=== PATIENT | female | born 1995 | race African-American/Black ===

== ENCOUNTER 2017-08-18 05:54 | Inpatient (IN) ==
[2017-08-18] MEDS ORDERED: BUTORPHANOL 2 MG/ML VIAL IV PRN (06:10)
[2017-08-18] MEDS: LACTATED RINGERS 1,000 ML IV SCH ×2 (06:26→09:20)
[2017-08-18] MEDS ORDERED: AMPICILLIN 2,000 MG VIAL IM ONE (06:30)
[2017-08-18] MEDS ORDERED: OXYTOCIN/LR 20 UNIT/1,000 ML BAG IV SCH (06:30)
[2017-08-18] MEDS ORDERED: SODIUM CHLORIDE 0.9% 100 ML IV ONE (06:31)
[2017-08-18] MEDS ORDERED: AMPICILLIN INJ 2,000 MG in SODIUM CHLORIDE 0.9% 100 ML IV ONE (06:34)
[2017-08-18 07:19] LABS: Basophils % 0.1 % (0.0-0.8); Eosinophils # 0.1 10*3/uL (0.0-0.87); Eosinophils % 0.7 % (0.00-10.9); Hematocrit 30.6 VOL% (35.7-47.0); Hemoglobin 9.7 GM/DL (12.0-16.0); Immature Granulocytes % 1.5 %; Immature Granulocytes Absolute 0.12 #; Lymphocytes # 1.9 10*3/uL (1.4-4.0); Lymphocytes % 23.9 % (21.3-54.2); Mean Corpuscular HGB Conc 31.7 GM/DL (32-36); Mean Corpuscular Hemoglobin 26 PG (27-34); Mean Platelet Volume 10.1 FL (9.6-12.0); Monocytes # 0.7 10*3/uL (0.11-0.8); Monocytes % 8.5 % (1.7-12.7); Neutrophils # 5.3 10*3/uL (1.4-7.4); Neutrophils % 65.3 % (38.7-73.9); Platelet Count 243 T/CUMM (130-400); Red Blood Count 3.73 MC/CUMM (3.8-5.5); Red Cell Distribution Width 13.5 % (9.3-17.3); White Blood Count 8.1 T/CUMM (4-12)
[2017-08-18] MEDS: ONDANSETRON 4 MG/2 ML VIAL IV PRN (07:55)
[2017-08-18] MEDS ORDERED: diphenhydrAMINE 50 MG/1 ML VIAL IV PRN ×2 (09:00)
[2017-08-18] MEDS ORDERED: FAMOTIDINE 20 MG/2 ML VIAL IV ONE (09:00)
[2017-08-18] MEDS ORDERED: CITRIC ACID/SODIUM CITRATE 30 ML UDCUP PO ONE (09:00)
[2017-08-18] MEDS ORDERED: fentaNYL 2 MCG/ROPIV 0.2% EPID 150 ML EPIDURAL SCH (09:00)
[2017-08-18] MEDS ORDERED: ePHEDrine 50 MG/ML AMP IV PRN (09:00)
[2017-08-18] MEDS ORDERED: LACTATED RINGERS 1,000 ML IV ONE ×2 (10:05→10:08)
[2017-08-18] MEDS ORDERED: LACTATED RINGERS 500 ML IV ONE ×2 (10:05→10:08)
[2017-08-18] MEDS ORDERED: BUTALBITAL/ACETAMIN/CAFFEINE 50-325-40 MG TABLET PO ONE (10:08)
[2017-08-18] MEDS ORDERED: LACTATED RINGERS 1,000 ML IV SCH ×2 (10:30)
[2017-08-18] MEDS ORDERED: AMPICILLIN 1,000 MG VIAL IM SCH (10:30)
[2017-08-18] MEDS ORDERED: BUTALBITAL/ACETAMIN/CAFFEINE 50-325-40 MG TABLET PO SCH (10:30)
[2017-08-18] MEDS ORDERED: AMPICILLIN INJ 1,000 MG in SODIUM CHLORIDE 0.9% 100 ML IV SCH (12:00)
[2017-08-18] MEDS: BUTALBITAL/ACETAMIN/CAFFEINE 50-325-40 MG TABLET PO SCH ×3 (12:56→23:42)
[2017-08-18] MEDS: SUMAtriptan 6 MG/0.5 ML VIAL SUBCUT SCH (13:04)
[2017-08-18] MEDS ORDERED: BENZOCAINE 20%/MENTHOL 0.5% SPRAY 56 GM CAN TOP PRN (14:14)
[2017-08-18] MEDS ORDERED: OXYTOCIN/LR 20 UNIT/1,000 ML BAG IV ONE (14:14)
[2017-08-18] MEDS ORDERED: RHO(D) IMMUNE GLOBULIN 300 MCG SYRINGE IM ONE (14:14)
[2017-08-18] MEDS ORDERED: ACETAMINOPHEN 325 MG TABLET PO PRN (14:14)
[2017-08-18] MEDS ORDERED: oxyCODONE/ACETAMINOPHEN 5-325 MG TABLET PO PRN (14:14)
[2017-08-18] MEDS ORDERED: LANOLIN 50% CREAM 0.3 OZ TUBE TOP PRN (14:14)
[2017-08-18] MEDS ORDERED: DIPH/TET/ACEL PERT BOOSTER VACCINE 0.5 ML VIAL IM ONE (14:14)
[2017-08-18] MEDS ORDERED: HYDROCORTISONE 2.5% RECTAL CREAM 30 GM TUBE TOP PRN (14:14)
[2017-08-18] MEDS ORDERED: MEASLES/MUMPS/RUBELLA VACCINE 0.5 ML VIAL SUBCUT ONE (14:14)
[2017-08-18] MEDS ORDERED: WITCH HAZEL PADS 100/JAR TOP PRN (14:14)
[2017-08-18] MEDS ORDERED: BISACODYL 10 MG SUPP RECTAL PRN (14:14)
[2017-08-18] MEDS ORDERED: AMPICILLIN 2,000 MG VIAL IM SCH (14:30)
[2017-08-18] MEDS: FERROUS SULFATE 325 MG TABLET PO SCH ×2 (15:52→21:21)
[2017-08-18] MEDS: IBUPROFEN 800 MG TABLET PO PRN ×2 (15:52→23:43)
[2017-08-18] MEDS: AMPICILLIN INJ 2,000 MG in SODIUM CHLORIDE 0.9% 100 ML IV SCH ×2 (17:14→23:45)
[2017-08-18] MEDS ORDERED: AMPICILLIN 2,000 MG VIAL IV SCH (17:30)
[2017-08-18] MEDS: DOCUSATE SODIUM 100 MG CAPSULE PO SCH (21:22)
[2017-08-18] MEDS: oxyCODONE/ACETAMINOPHEN 5-325 MG TABLET PO PRN (21:22)
[2017-08-19] MEDS: ALBUTEROL 2.5 MG/3 ML NEB RESP TX SCH ×5 (00:21→15:15)
[2017-08-19] MEDS: ONDANSETRON 4 MG/2 ML VIAL IV PRN (00:56)
[2017-08-19] MEDS: SUMAtriptan 6 MG/0.5 ML VIAL SUBCUT SCH (01:06)
[2017-08-19 04:45] LABS: Basophils % 0.1 % (0.0-0.8); Eosinophils # 0.1 10*3/uL (0.0-0.87); Eosinophils % 0.5 % (0.00-10.9); Hematocrit 32.6 VOL% (35.7-47.0); Hemoglobin 10.2 GM/DL (12.0-16.0); Immature Granulocytes % 1.1 %; Immature Granulocytes Absolute 0.15 #; Lymphocytes # 2.4 10*3/uL (1.4-4.0); Mean Corpuscular HGB Conc 31.3 GM/DL (32-36); Mean Corpuscular Hemoglobin 26 PG (27-34); Mean Corpuscular Volume 83.2 FL (87-102); Mean Platelet Volume 10.8 FL (9.6-12.0); Monocytes # 1.2 10*3/uL (0.11-0.8); Monocytes % 8.8 % (1.7-12.7); Neutrophils # 9.7 10*3/uL (1.4-7.4); Neutrophils % 71.5 % (38.7-73.9); Platelet Count 257 T/CUMM (130-400); Red Blood Count 3.92 MC/CUMM (3.8-5.5); Red Cell Distribution Width 13.5 % (9.3-17.3); White Blood Count 13.6 T/CUMM (4-12)
[2017-08-19] MEDS: BUTALBITAL/ACETAMIN/CAFFEINE 50-325-40 MG TABLET PO SCH (06:07)
[2017-08-19] MEDS: AMPICILLIN INJ 2,000 MG in SODIUM CHLORIDE 0.9% 100 ML IV SCH ×2 (06:07→11:31)
[2017-08-19] MEDS ORDERED: BUTALBITAL/ACETAMIN/CAFFEINE 50-325-40 MG TABLET PO PRN (07:16)
[2017-08-19] MEDS: DOCUSATE SODIUM 100 MG CAPSULE PO SCH ×2 (08:42→21:44)
[2017-08-19] MEDS: FERROUS SULFATE 325 MG TABLET PO SCH ×3 (08:42→21:44)
[2017-08-19] MEDS: IBUPROFEN 800 MG TABLET PO PRN ×2 (09:38→17:53)
[2017-08-19] MEDS: CIPROFLOXACIN 500 MG TABLET PO SCH (21:44)
[2017-08-20] MEDS: ALBUTEROL 2.5 MG/3 ML NEB RESP TX SCH ×5 (00:05→14:13)
[2017-08-20] MEDS: oxyCODONE/ACETAMINOPHEN 5-325 MG TABLET PO PRN ×2 (02:10→09:37)
[2017-08-20] MEDS: FERROUS SULFATE 325 MG TABLET PO SCH ×2 (09:28→16:51)
[2017-08-20] MEDS: DOCUSATE SODIUM 100 MG CAPSULE PO SCH (09:28)
[2017-08-20] MEDS: CIPROFLOXACIN 500 MG TABLET PO SCH (09:28)
[2017-08-20 09:37] VITALS: BP 97/61
[2017-08-20] MEDS: IBUPROFEN 800 MG TABLET PO PRN (14:36)
== END 2017-08-20 16:10 | disposition home or self-care (01) | DRG 774 ==
LOC: N.LDOUT 05:54 → N.LD 05:56 → N.OB 14:55
PROVIDERS: ADMIT Obstetrics & Gynecology; ATTEND Obstetrics & Gynecology

== ENCOUNTER 2018-06-19 19:34 | Observation (INO) ==
[2018-06-19] MEDS ORDERED: ACETAMINOPHEN 325 MG TABLET PO PRN (20:18)
[2018-06-19] MEDS ORDERED: ONDANSETRON 4 MG/2 ML VIAL IV PRN (20:18)
[2018-06-19] MEDS: PIPERACILLIN/TAZOBACTAM 3,375 MG in SODIUM CHLORIDE 0.9% 100 ML IV SCH (21:50)
[2018-06-20] MEDS: PIPERACILLIN/TAZOBACTAM 3,375 MG in SODIUM CHLORIDE 0.9% 100 ML IV SCH ×3 (04:25→20:31)
[2018-06-20] MEDS: HYDROmorphone 2 MG/1 ML VIAL IV PRN ×7 (05:16→23:30)
[2018-06-20 07:18] LABS: Basophils % 0.3 % (0.0-0.8); Eosinophils # 0.2 10*3/uL (0.0-0.87); Eosinophils % 2.9 % (0.00-10.9); Hematocrit 33.6 VOL% (35.7-47.0); Hemoglobin 10.4 GM/DL (12.0-16.0); Immature Granulocytes % 0.3 %; Immature Granulocytes Absolute 0.02 #; Lymphocytes # 2.6 10*3/uL (1.4-4.0); Lymphocytes % 39.4 % (21.3-54.2); Mean Corpuscular Hemoglobin 25 PG (27-34); Mean Corpuscular Volume 81.2 FL (87-102); Mean Platelet Volume 10.3 FL (9.6-12.0); Monocytes # 0.6 10*3/uL (0.11-0.8); Monocytes % 8.8 % (1.7-12.7); Neutrophils # 3.1 10*3/uL (1.4-7.4); Neutrophils % 48.3 % (38.7-73.9); Platelet Count 268 T/CUMM (130-400); Red Blood Count 4.14 MC/CUMM (3.8-5.5); Red Cell Distribution Width 13.7 % (9.3-17.3); White Blood Count 6.5 T/CUMM (4-12)
[2018-06-20 07:36] LABS: Albumin 3.1 G/DL (3.4-5.0); Bilirubin,Total 1.2 MG/DL (0.2-1.0); Calcium 8.5 MG/DL (8.5-10.1); Osmolality,Calculated 271.7 MOS/KG (273-304); Potassium 3.7 MMOL/L (3.5-5.1)
[2018-06-20] MEDS: PANTOPRAZOLE 40 MG TABLET PO SCH (08:05)
[2018-06-20] MEDS: KETOROLAC 30 MG/1 ML VIAL IV PRN ×2 (08:05→18:25)
[2018-06-20] MEDS: DEXTROSE 5% NACL 0.45% 1,000 ML IV SCH ×4 (09:14→20:30)
[2018-06-20] MEDS ORDERED: LIDOCAINE 1%/EPI INJ 20 ML VIAL ONE (12:25)
[2018-06-20] MEDS ORDERED: TISSUE ADHESIVE 1 EACH APPLICATOR TOP ONE (12:25)
[2018-06-20] MEDS ORDERED: BUPIVACAINE MPF 0.25% /EPI 30 ML VIAL ONE (12:25)
[2018-06-20] MEDS ORDERED: MIDAZOLAM 2 MG/2 ML VIAL ONE (14:53)
[2018-06-20] MEDS ORDERED: SEVOFLURANE 1 UNIT/15 MINUTE INH ONE (14:53)
[2018-06-20] MEDS ORDERED: PROPOFOL 200 MG/20 ML VIAL IV ONE (14:53)
[2018-06-20] MEDS ORDERED: GLYCOPYRROLATE 0.4 MG/2 ML VIAL ONE (14:54)
[2018-06-20] MEDS ORDERED: fentaNYL 100 MCG/2 ML VIAL ONE (14:54)
[2018-06-20] MEDS ORDERED: ROCURONIUM 100 MG/10 ML VIAL IV ONE (14:54)
[2018-06-20] MEDS ORDERED: ONDANSETRON 4 MG/2 ML VIAL ONE ×2 (14:54→15:14)
[2018-06-20] MEDS ORDERED: DEXAMETHASONE 10 MG/1 ML VIAL ONE (14:54)
[2018-06-20] MEDS ORDERED: KETOROLAC 30 MG/1 ML VIAL ONE (14:54)
[2018-06-20] MEDS ORDERED: NEOSTIGMINE 10 MG/10 ML VIAL ONE (14:54)
[2018-06-20] MEDS ORDERED: ONDANSETRON 4 MG/2 ML VIAL IV PRN (15:13)
[2018-06-20] MEDS ORDERED: ACETAMINOPHEN 1,000 MG/100 ML VIAL IV ONE (16:29)
[2018-06-20] MEDS ORDERED: ASPIRIN CHEW 81 MG TABLET PO ONE (19:25)
[2018-06-20] MEDS: NITROGLYCERIN SL 0.4 MG TABLET SL PRN ×2 (19:32→19:40)
[2018-06-20] MEDS: MORPHINE 4 MG/1 ML VIAL IV PRN ×2 (19:32→19:44)
[2018-06-20] MEDS ORDERED: SIMETHICONE CHEW 80 MG TABLET PO PRN (19:51)
[2018-06-21] MEDS ORDERED: diphenhydrAMINE CAP 25 MG CAPSULE PO PRN (00:31)
[2018-06-21] MEDS: PIPERACILLIN/TAZOBACTAM 3,375 MG in SODIUM CHLORIDE 0.9% 100 ML IV SCH ×2 (06:15→12:56)
[2018-06-21] MEDS: DEXTROSE 5% NACL 0.45% 1,000 ML IV SCH ×2 (06:16→14:24)
[2018-06-21] MEDS: KETOROLAC 30 MG/1 ML VIAL IV PRN ×2 (06:19→14:01)
[2018-06-21] MEDS: PANTOPRAZOLE 40 MG TABLET PO SCH (08:12)
[2018-06-21 08:22] LABS: Basophils % 0.1 % (0.0-0.8); Hematocrit 31.7 VOL% (35.7-47.0); Hemoglobin 10.1 GM/DL (12.0-16.0); Immature Granulocytes % 0.3 %; Immature Granulocytes Absolute 0.03 #; Lymphocytes # 1.8 10*3/uL (1.4-4.0); Lymphocytes % 18.5 % (21.3-54.2); Mean Corpuscular HGB Conc 31.9 GM/DL (32-36); Mean Corpuscular Hemoglobin 26 PG (27-34); Mean Corpuscular Volume 80.7 FL (87-102); Mean Platelet Volume 10.2 FL (9.6-12.0); Monocytes # 0.7 10*3/uL (0.11-0.8); Monocytes % 6.8 % (1.7-12.7); Neutrophils # 7.2 10*3/uL (1.4-7.4); Neutrophils % 74.3 % (38.7-73.9); Platelet Count 293 T/CUMM (130-400); Red Blood Count 3.93 MC/CUMM (3.8-5.5); Red Cell Distribution Width 13.2 % (9.3-17.3); White Blood Count 9.6 T/CUMM (4-12)
[2018-06-21 08:48] LABS: Alanine Aminotransferase 24 U/L (13-56); Albumin 2.7 G/DL (3.4-5.0); Alkaline Phosphatase 71 U/L (45-117); Aspartate Amino Transferase 27 U/L (0-37); Bilirubin,Total < 0.39 MG/DL (0.2-1.0); Blood Urea Nitrogen 4 MG/DL (7-18); Calcium 8.2 MG/DL (8.5-10.1); Glucose 124 MG/DL (74-106); Osmolality,Calculated 278.3 MOS/KG (273-304); Potassium 3.8 MMOL/L (3.5-5.1); Sodium 141 MMOL/L (136-145); Total Protein 6.6 G/DL (6.4-8.3)
[2018-06-21] MEDS: HYDROmorphone 2 MG/1 ML VIAL IV PRN (08:52)
[2018-06-21 16:42] VITALS: BP 116/65
== END 2018-06-21 18:53 | disposition home or self-care (01) ==
LOC: EDUNIT# → EDBD → N.ED 19:34 → N.EDINP 19:34 → N.3E 21:09
PROVIDERS: ADMIT Surgery; ATTEND Surgery
PROC: LAPCHOL (2018-06-20 13:35)